=== PATIENT | male | born 1960 | race African-American/Black ===

== ENCOUNTER 2019-06-03 21:41 | Emergency (ER) | payer MEDICARE, MEDICAID ==
--- NOTE | 2019-06-03 22:18 | ER Document Report ---
ED Medical Screen (RME) - General Chief Complaint: Flu Symptoms Stated Complaint: FLU LIKE SYMPTOMS Time Seen by Provider: 06/03/19 22:12 Notes: Patient is a 59-year-old male who presents emergency department with a chief complaint of flulike symptoms. He has had a runny nose, cough, and chills for the past 3 days. Exam: Diminished breath sounds on the right lower lobe. No wheezing noted. I have greeted and performed a rapid initial assessment of this patient. A comprehensive ED assessment and evaluation of the patient, analysis of test results and completion of medical decision making process will be conducted by an additional ED providers. Physical Exam - Vital signs Vitals: Temp Pulse Resp BP Pulse Ox 99.3 F 79 18 162/81 H 96 06/03/19 21:59 06/03/19 21:59 06/03/19 21:59 06/03/19 21:59 06/03/19 21:59 Course - Vital Signs Vital signs: Temp Pulse Resp BP Pulse Ox 99.3 F 79 18 162/81 H 96 06/03/19 21:59 06/03/19 21:59 06/03/19 21:59 06/03/19 21:59 06/03/19 21:59
--- NOTE | 2019-06-03 23:29 | RADIOLOGY REPORT (SQ) ---
EXAM DESCRIPTION: XR CHEST 2 VIEWS COMPLETED DATE/TME: 06/03/2019 22:16 CLINICAL HISTORY: 59 years, Male, cough COMPARISON: None. NUMBER OF VIEWS: Two TECHNIQUE: Frontal and lateral radiographs of the chest were acquired LIMITATIONS: None. FINDINGS: Status post median sternotomy. Right subclavian approach cardiac pacer is in position. Cardiac and mediastinal contours are normal. Lungs are clear. No pleural effusion or pneumothorax. IMPRESSION: No acute disease. copyright 2010 [employer]- All Rights Reserved
[2019-06-04 00:41] LABS: A TYPE INFLUENZA AG NEGATIVE (NEGATIVE); B INFLUENZA AG NEGATIVE (NEGATIVE)
[2019-06-04 01:01] VITALS: BP 133/87
[2019-06-04] MEDS ORDERED: IPRATROPIUM/ALBUTEROL 0.5-2.5 MG/3 ML AMPUL NEB ONE (01:43)
--- NOTE | 2019-06-04 01:52 | ER Document Report ---
HPI - HPI Time Seen by Provider: 06/03/19 22:12 Pain Level: 3 Notes: 59-year-old male patient with past medical history of hypertension presenting with cough, congestion and body aches over the last 3 days. Patient reports he is tried [id number] medications without relief. Patient denies any fevers, nausea vomiting or diarrhea. - CONSTITUTIONAL Constitutional: DENIES: Fever, Chills - NEURO Neurology: REPORTS: Headache - CARDIOVASCULAR Cardiovascular: REPORTS: Chest pain - RESPIRATORY Respiratory: REPORTS: Coughing Past Medical History - General Information source: Patient - Social History Smoking Status: Former Smoker Frequency of alcohol use: None Drug Abuse: None Lives with: Spouse/Significant other Family History: None Patient has suicidal ideation: No Patient has homicidal ideation: No - Past Medical History Cardiac Medical History: Reports: Hx Hypercholesterolemia, Hx Hypertension Endocrine Medical History: Reports: Hx Diabetes Mellitus Type 2 Past Surgical History: Reports: Hx Cardiac Catheterization Vertical Provider Document - CONSTITUTIONAL Notes: PHYSICAL EXAMINATION: GENERAL: Well-appearing, well-nourished and in no acute distress. HEAD: Atraumatic, normocephalic. EYES: Pupils equal round and reactive to light, extraocular movements intact, sclera anicteric, conjunctiva are normal. ENT: Nares patent, oropharynx clear without exudates. Moist mucous membranes. NECK: Normal range of motion, supple without lymphadenopathy LUNGS: Breath sounds clear to auscultation bilaterally and equal. No wheezes rales or rhonchi. Bronchospasm with deep breath, congested cough. HEART: Regular rate and rhythm without murmurs ABDOMEN: Soft, nontender, nondistended abdomen. No guarding, no rebound. No masses appreciated. Musculoskeletal: Normal range of motion, no pitting or edema. No cyanosis. NEUROLOGICAL: Cranial nerves grossly intact. Normal speech, normal gait. Normal sensory, motor exams PSYCH: Normal mood, normal affect. SKIN: Warm, Dry, normal turgor, no rashes or lesions noted. - INFECTION CONTROL TRAVEL OUTSIDE OF THE [place] IN LAST 30 DAYS: No Course - Re-evaluation Re-evalutation: Chest X-Ray 06/03/19 22:16 IMPRESSION: No acute disease. copyright 2011 [employer]- All Rights Reserved Laboratory 06/04/19 00:15 Influenza A (Rapid) NEGATIVE Influenza B (Rapid) NEGATIVE Influenza testing negative. Chest x-ray unremarkable. Likely viral upper respiratory illness. Patient will be given prescriptions for his symptoms. Follow-up with primary care. Patient and verbalized understanding and agreement with this plan. - Vital Signs Vital signs: Temp Pulse Resp BP Pulse Ox 99 F 83 20 133/87 H 100 06/04/19 01:00 06/04/19 01:00 06/04/19 01:00 06/04/19 01:00 06/04/19 01:00 Discharge - Discharge Clinical Impression: Viral upper respiratory illness Condition: Stable Disposition: HOME, SELF-CARE Instructions: Upper Respiratory Illness ([facility]), Viral Syndrome ([facility]) Additional Instructions: Your chest x-ray and influenza testing were unremarkable today. Please push fluids. Take Tylenol and ibuprofen for pain, fever or body aches. Take medications as prescribed to help with your symptoms. This is likely viral and may take 7 to 10 days to pass. Please return to the emergency department if you start experiencing high fevers, vomiting or worsening shortness of breath. Follow-up with your primary care in the next 3 to 5 days for recheck. Prescriptions: Codeine Phosphate/Guaifenesin [Cheratussin AC Syrup] 10 ml PO QHS #120 ml Benzonatate [Tessalon Perles 100 mg Capsule] 1 - 2 tab PO Q8HP PRN #30 capsule PRN Reason: Prednisone [Deltasone 20 mg Tablet] 3 tab PO DAILY 5 Days #15 tablet Fluticasone Propionate [Flonase Nasal [place] 50 Mcg/[place] 16 gm] 1 spray NASL Q12 #1 inhaler Forms: Return to Work Referrals: MADDY KLEIN, AUTO FLEET MANAGER-C [Primary Care Provider] - Follow up as needed
== END 2019-06-04 02:27 | disposition home or self-care (01) ==
LOC: ER 21:41
DX: J06.9 Acute upper respiratory infection, unspecified (principal); B97.89 Other viral agents as the cause of diseases classified elsewhere; R05 Cough; R09.81 Nasal congestion; M79.10 Myalgia, unspecified site; R07.9 Chest pain, unspecified; I10 Essential (primary) hypertension; E11.9 Type 2 diabetes mellitus without complications
CPT/HCPCS: 94640; 99283; 87804; 71046; A9270; J7620

== ENCOUNTER 2019-06-11 13:06 | Emergency (ER) | payer MEDICARE, MEDICAID ==
[2019-06-11] MEDS ORDERED: NORMAL SALINE 1000 ML 1,000 ML IV ONE (13:12)
--- NOTE | 2019-06-11 13:16 | ER Document Report ---
ED Medical Screen (RME) - General Chief Complaint: Blood Pressure Problem Stated Complaint: ELEVATED BLOOD SUGAR Time Seen by Provider: 06/11/19 13:12 Primary Care Provider: MADDY KLEIN FNP-C [Primary Care Provider] - Follow up as needed Mode of Arrival: Wheelchair Information source: Patient Notes: 59-year-old male presented to ED for nausea weakness unsteady on his feet. He [facility] and said it was just read high because her meter only went to 400 so they instructed him to come to the emergency room right away. He is on insulin twice a day. He states he has been very weak very tired and urinating frequently he is a type II diabetic and uses insulin twice a day. He states he does have a pacemaker. He states he also has a history of a leaky heart valve. We will get him blood urine Accu- Chek fluids and get seen by another provider. I have greeted and performed a rapid initial assessment of this patient. A comprehensive ED assessment and evaluation of the patient, analysis of test results and completion of medical decision making process will be conducted by an additional ED providers. TRAVEL OUTSIDE OF THE [place] IN LAST 30 DAYS: No - Related Data Allergies/Adverse Reactions: No Known Allergies Allergy (Unverified 06/04/19 01:02) Past Medical History - Past Medical History Cardiac Medical History: Reports: Hx Hypercholesterolemia, Hx Hypertension Endocrine Medical History: Reports: Hx Diabetes Mellitus Type 2 Past Surgical History: Reports: Hx Cardiac Catheterization Doctor's Discharge - Discharge Referrals: MADDY KLEIN FNP-C [Primary Care Provider] - Follow up as needed
[2019-06-11 13:45] LABS: VENOUS BLOOD BASE EXCESS 0.5 mmol/L; VENOUS BLOOD HCO3 26.7 mmol/L (20-32); VENOUS BLOOD PCO2 47.6 mmHg (35-63); VENOUS BLOOD PH 7.37 (7.30-7.42)
[2019-06-11 13:47] LABS: ABSOLUTE EOSINOPHILS # (AUTO) 0.1 10^3/uL (0.0-0.6); ABSOLUTE LYMPHOCYTES (AUTO) 0.9 10^3/uL (0.5-4.7); ABSOLUTE MONOCYTES (AUTO) 0.6 10^3/uL (0.1-1.4); ABSOLUTE NEUT (AUTO) 6.5 10^3/uL (1.7-8.2); BASOPHILS % (AUTO) 0.4 % (0-2); HEMOGLOBIN 18.4 g/dL (13.5-17.0); LYMPHOCYTES % (AUTO) 11.2 % (13-45); MEAN CORPUSCULAR HEMOGLOBIN 27.5 pg (27.0-33.4); MEAN CORPUSCULAR HGB CONC 31.8 g/dL (32.0-36.0); MEAN CORPUSCULAR VOLUME 86 fl (80-97); MONOCYTES % (AUTO) 7.7 % (3-13); PLATELET COUNT 259 10^3/uL (150-450); RED BLOOD COUNT 6.68 10^6/uL (4.35-5.55); RED CELL DISTRIBUTION WIDTH 13.2 % (11.5-14.0); SEGMENTED NEUTROPHILS % (AUTO) 79.7 % (42-78); TOTAL CELLS COUNTED % (AUTO) 100 %; WHITE BLOOD COUNT 8.1 10^3/uL (4.0-10.5)
[2019-06-11 13:49] LABS: HEMATOCRIT 57.7 % (37.9-51.0)
[2019-06-11 14:22] LABS: ALBUMIN 4.7 g/dL (3.5-5.0); ALKALINE PHOSPHATASE 190 U/L (38-126); ANION GAP 18 (5-19); ASPARTATE AMINO TRANSFERASE 14 U/L (17-59); BILIRUBIN,DIRECT 0.3 mg/dL (0.0-0.4); BILIRUBIN,TOTAL 0.8 mg/dL (0.2-1.3); BLOOD UREA NITROGEN 33 mg/dL (7-20); CARBON DIOXIDE 23 mmol/L (22-30); CHLORIDE 88 mmol/L (98-107); CREATINE KINASE 55 U/L (55-170); POTASSIUM 5.6 mmol/L (3.6-5.0)
[2019-06-11 14:43] LABS: GLUCOSE 773 mg/dL (75-110)
[2019-06-11] MEDS ORDERED: RINGERS SOLUTION,LACTATED 1,000 ML IV ONE (15:33)
--- NOTE | 2019-06-11 15:57 | EKG REPORT ---
SEVERITY:- ABNORMAL ECG - SINUS RHYTHM LEFT ANTERIOR FASCICULAR BLOCK BORDERLINE T ABNORMALITIES, ANTERIOR LEADS : Confirmed by: Bola Coleman MD 11-Jun-2019 15:56:35
[2019-06-11 16:29] LABS: ALBUMIN 4.7 g/dL (3.5-5.0); BLOOD UREA NITROGEN 34 mg/dL (7-20); CALCIUM 11.2 mg/dL (8.4-10.2); PHOSPHORUS 5.4 mg/dL (2.5-4.5); POTASSIUM 5.6 mmol/L (3.6-5.0)
[2019-06-11 16:34] LABS: CARBON DIOXIDE 21 mmol/L (22-30); CHLORIDE 88 mmol/L (98-107)
[2019-06-11 16:36] LABS: ANION GAP 20 (5-19)
[2019-06-11 16:42] LABS: GLUCOSE 777 mg/dL (75-110)
[2019-06-11 16:43] LABS: APPEARANCE,URINE CLEAR; BILIRUBIN,URINE NEGATIVE (NEGATIVE); COLOR,URINE COLORLESS; GLUCOSE, URINE >=500 mg/dL (NEGATIVE); KETONES,URINE TRACE mg/dL (NEGATIVE); LEUKOCYTE ESTERASE,URINE NEGATIVE (NEGATIVE); NITRITE,URINE NEGATIVE (NEGATIVE); PROTEIN,URINE NEGATIVE (NEGATIVE); URINE SPECIFIC GRAVITY 1.026; UROBILINOGEN,URINE NEGATIVE mg/dL (<2.0)
--- NOTE | 2019-06-11 18:17 | RADIOLOGY REPORT (SQ) ---
EXAM DESCRIPTION: CHEST 2 VIEWS COMPLETED DATE/TIME: 06/11/2019 6:07 pm REASON FOR STUDY: cough COMPARISON: PA and lateral views of the chest from 06/03/2019. EXAM PARAMETERS: NUMBER OF VIEWS: two views TECHNIQUE: PA and lateral views of the chest were obtained. RADIATION DOSE: NA LIMITATIONS: none FINDINGS: LUNGS AND PLEURA: No consolidation, pleural effusion or pneumothorax. MEDIASTINUM AND HILAR STRUCTURES: No mediastinal or hilar contour abnormality. HEART AND VASCULAR STRUCTURES: The cardiac silhouette and pulmonary vasculature are within normal siu its. BONES: Median sternotomy wires and right subclavian approach transvenous pacemaker. HARDWARE: None in the chest. OTHER: No other finding. IMPRESSION: No acute cardiopulmonary process. TECHNICAL DOCUMENTATION: JOB ID: [id number] [employer]- All Rights Reserved Reading location - IP/workstation name: [email or web address]
[2019-06-11 18:54] LABS: ALBUMIN 3.6 g/dL (3.5-5.0); ALKALINE PHOSPHATASE 122 U/L (38-126); ANION GAP 12 (5-19); ASPARTATE AMINO TRANSFERASE 14 U/L (17-59); BILIRUBIN,DIRECT 0.2 mg/dL (0.0-0.4); BILIRUBIN,TOTAL 0.5 mg/dL (0.2-1.3); BLOOD UREA NITROGEN 29 mg/dL (7-20); CALCIUM 9.7 mg/dL (8.4-10.2); CARBON DIOXIDE 25 mmol/L (22-30); CHLORIDE 100 mmol/L (98-107); GLUCOSE 342 mg/dL (75-110); POTASSIUM 4.7 mmol/L (3.6-5.0); TOTAL PROTEIN 6.5 g/dL (6.3-8.2)
--- NOTE | 2019-06-11 19:45 | ER Document Report ---
ED General - General Chief Complaint: High Blood Sugar Stated Complaint: ELEVATED BLOOD SUGAR Time Seen by Provider: 06/11/19 13:12 Primary Care Provider: MADDY KLEIN FNP-C [Primary Care Provider] - Follow up as needed Mode of Arrival: Wheelchair Information source: Patient, [facility] Records TRAVEL OUTSIDE OF THE [place] IN LAST 30 DAYS: No - HPI Notes: 59-Y/O BM W/Hx DM, on 70/30 R he has not ISS with an oral DM med both of which he has been on for some time now and has been well controlled has never or has not recently had any lapse in his medications and he takes his sugar twice a day is really only last few days he has noticed sugars in the 400s. He does say he has a in the family and has noted some sugars into the 200s in the week before this but otherwise he started to notice frequent urination along with t hese days when he has been in the 400s. Denies any hospitalization for his diabetes or history of DKA. Has not had low sugars. He was seen in our ED a few days ago, 06-07-19 for cough, was prescribed 3d prednisone, Robitussin and had 2v cxr which did not show any radha PNA. But today he says he has not had much change at all in his cough he has not had any fever chills sweats. He denies any new abdominal pain he has had some mild sore throat that has not really changed in the last few days. He denies any problems with urination besides the polyuria. He denies any other vision change, or thopnea, exertional symptoms. He denies any other sick contacts. He has not smoked since 1993 when they placed the first pacemaker he said for very slow heart. He since has had to have 3 exchanges with the last being in 2007 secondary to initial staph infection from source of broken finger and re quiring hardware placement with subsequent infection and then difficulty exchanging pacemakers after that. - Related Data Allergies/Adverse Reactions: No Known Allergies Allergy (Unverified 06/04/19 01:02) Home Medications: insulin Past Medical History - General Information source: Patient - Social History Smoking Status: Former Smoker Frequency of alcohol use: None Drug Abuse: None Family History: None Patient has suicidal ideation: No Patient has homicidal ideation: No - Past Medical History Cardiac Medical History: Reports: Hx Hypercholesterolemia, Hx Hypertension Endocrine Medical History: Reports: Hx Diabetes Mellitus Type 2 Past Surgical History: Reports: Hx Cardiac Catheterization Review of Systems - Review of Systems Constitutional: No symptoms reported, See HPI EENT: See HPI, Throat pain. denies: Eye discharge, Nose discharge, Difficulty swallowing, Dental problem Cardiovascular: No symptoms reported. denies: Chest pain, Palpitations, Heart racing, Orthopnea, Dyspnea, Syncope, Dizziness, Lightheaded, Edema Respiratory: No symptoms reported, Cough, Sputum. denies: Hurts to breathe, Hemoptysis, Short of breath, Wheezing Gastrointestinal: No symptoms reported Genitourinary: No symptoms reported, See HPI. denies: Burning, Dysuria, Discharge, Flank pain, Hematuria, Incontinence, Urgency, Retention Male Genitourinary: No symptoms reported Musculoskeletal: No symptoms reported Skin: No symptoms reported Hematologic/Lymphatic: No symptoms reported Neurological/Psychological: No symptoms reported Physical Exam - Vital signs Vitals: Temp Pulse BP Pulse Ox 97.4 F 83 105/70 96 06/11/19 13:14 06/11/19 13:14 06/11/19 13:14 06/11/19 13:14 Interpretation: Normal - Notes Notes: Appears well, is no acute distress. On room air resting easily awakened by voice. Lungs are nonfocal. No absence of any breath sounds. Or diminished breath sounds. Has wet cough without sputum production while interviewing. - General General appearance: Appears well, Alert - HEENT Head: Normocephalic, Atraumatic Eyes: Normal Pupils: PERRL - Respiratory Respiratory status: No respiratory distress Chest status: Nontender Breath sounds: Normal Chest palpation: Normal - Cardiovascular Rhythm: Regular Heart sounds: Normal auscultation Murmur: No - Abdominal Inspection: Normal Distension: No distension Bowel sounds: Normal Tenderness: Nontender Organomegaly: No organomegaly - Back Back: Normal, Nontender - Extremities General upper extremity: Normal inspection, Nontender, Normal color, Normal ROM, Normal temperature General lower extremity: Normal inspection, Nontender, Normal color, Normal ROM, Normal temperature, Normal weight bearing. No: Renetta's sign - Neurological Neuro grossly intact: Yes Cognition: Normal Orientation: AAOx4 Traci Coma Scale Eye Opening: Spontaneous [place] Coma Scale Verbal: Oriented [place] Coma Scale Motor: Obeys Commands [place] Coma Scale Total: 15 Speech: Normal Motor strength normal: LUE, RUE, LLE, RLE Sensory: Normal - Psychological Associated symptoms: Normal affect, Normal mood - Skin Skin Temperature: Warm Skin Moisture: Dry Skin Color: Normal Course - Re-evaluation Re-evalutation: 06/11/19 21:45 Given 3L LR no evidence of acidosis or ketosis on initial venous and serum metabolic panel, after fluid administration repeat of metabolic panel showed normalization of bicarb no anion gap. Continued to be hemodynamically within normal limits and stable. I explained this is secondary to the 3 days of prednisone and now that he has stopped the offending agent I expect him to not have continued polyuria and that his sugar should be starting to normalize again in the next day or so. I said please watch for any signs of fever chills sweats that develop or trouble breathing its new or return of the polyuria polydipsia or any abdominal pain or other concerns. We also had repeated the two-view chest x-ray here and again no evidence of pneumonia. Had no fevers while in the ED. - Vital Signs Vital signs: Temp Pulse Resp BP Pulse Ox 97.6 F 61 15 132/81 H 61 L 06/11/19 20:18 06/11/19 20:18 06/11/19 20:18 06/11/19 20:18 06/11/19 20:18 - Laboratory Result Diagrams: 06/11/19 13:27 06/11/19 17:58 Laboratory results interpreted by me: 06/11/19 06/11/19 06/11/19 13:27 13:27 13:27 RBC 6.68 H Hgb 18.4 H Hct 57.7 H MCHC 31.8 L Lymph % (Auto) 11.2 L Seg Neutrophils % 79.7 H Sodium 129.3 L 128.5 L Potassium 5.6 H 5.6 H Chloride 88 L 88 L Carbon Dioxide 21 L Anion Gap 20 H BUN 33 H 34 H Creatinine 1.29 H 1.29 H Est GFR (MDRD) Non-Af 57 L 57 L Glucose 773 H* 777 H* POC Glucose Calcium 11.0 H 11.2 H Phosphorus 5.4 H AST 14 L Alkaline Phosphatase 190 H Urine Glucose (UA) Urine Ketones 06/11/19 06/11/19 06/11/19 15:15 16:20 16:41 RBC Hgb Hct MCHC Lymph % (Auto) Seg Neutrophils % Sodium Potassium Chloride Carbon Dioxide Anion Gap BUN Creatinine Est GFR (MDRD) Non-Af Glucose POC Glucose 450 H* 419 H* Calcium Phosphorus AST Alkaline Phosphatase Urine Glucose (UA) >=500 H Urine Ketones TRACE H 06/11/19 17:58 RBC Hgb Hct MCHC Lymph % (Auto) Seg Neutrophils % Sodium 136.9 L Potassium Chloride Carbon Dioxide Anion Gap BUN 29 H Creatinine Est GFR (MDRD) Non-Af Glucose 342 H POC Glucose Calcium Phosphorus AST 14 L Alkaline Phosphatase Urine Glucose (UA) Urine Ketones - Diagnostic Test Radiology reviewed: Image reviewed, Reports reviewed Discharge - Discharge Clinical Impression: Hyperglycemia without ketosis, Hyperglycemia, drug-induced, Viral upper respiratory illness Condition: Fair Disposition: HOME, SELF-CARE Additional Instructions: Today your chest x-ray does not show any pneumonia and looks unchanged from a few days ago. Your blood sugar has come down with just fluids and you have no evidence of DKA or in other words any acids in your blood. Your other labs look okay, I think you should still have a viral infection and bronchitis and the sugars are elevated just because of the prednisone which is a steroid which does this to blood sugars. Therefore since you are not taking this anymore these should start to improve just continue to check your sugars at home and make sure you stay hydrated and are eating well. Otherwise at like you to call your doctor for follow-up just for regular maintenance. Watch though, for any fevers greater than 100.4, worsening or trouble breathing please come to seek medical attention and let your doctor know. Or you feel like your sugars are getting high again and you can talk to your doctor, you can always come to the ED if needed. Referrals: MADDY KLEIN, UNIT DIRECTOR-C [Primary Care Provider] - Follow up as needed
[2019-06-11 20:18] VITALS: BP 132/81
== END 2019-06-11 20:18 | disposition home or self-care (01) ==
LOC: ER 13:06
DX: E11.65 Type 2 diabetes mellitus with hyperglycemia (principal); J06.9 Acute upper respiratory infection, unspecified; R05 Cough; J02.9 Acute pharyngitis, unspecified; Z95.0 Presence of cardiac pacemaker; Z87.891 Personal history of nicotine dependence; I10 Essential (primary) hypertension
CPT/HCPCS: 93005; 99284; 96360; 96361; 80069; 36415; 87070 ×2; 82553; 87880; 82962; 82550; 85025; 80053; 81001; 82803; 71046; 93010; J7030; J7120

== ENCOUNTER 2019-12-25 14:10 | Emergency (ER) | payer MEDICARE, MEDICAID ==
[2019-12-25] MEDS ORDERED: DIPH/PERTUSS(ACELL)/TETANUS VAC/PF 0.5 ML SYR (>=10YO) IM ONE (14:26)
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
--- NOTE | 2019-12-25 16:02 | RADIOLOGY REPORT (SQ) ---
EXAM DESCRIPTION: HAND RIGHT 3 VIEWS IMAGES COMPLETED DATE/TIME: 12/25/2019 3:08 pm REASON FOR STUDY: pain COMPARISON: None. EXAM PARAMETERS: NUMBER OF VIEWS: Three views. TECHNIQUE: AP, lateral and oblique radiographic images acquired of the right hand. LIMITATIONS: None. FINDINGS: MINERALIZATION: Normal. BONES: No acute fracture dislocation. The 3rd digit distal interphalangeal joint is fused. Degenera tive changes are seen of the thumb metacarpal phalangeal joint and all interphalangeal joints. JOINTS: No effusions. SOFT TISSUES: There may be foci of subcutaneous gas involving the 4th and 5th digits. No retained ra diopaque foreign body is demonstrated. OTHER: No other significant finding. IMPRESSION: No evidence of acute osseous injury. There may be foci of subcutaneous gas involving th e 4th and 5th digits. . TECHNICAL DOCUMENTATION: JOB ID: [id number] 2010 [employer]- All Rights Reserved Reading location - IP/workstation name: [email or web address]
[2019-12-25] MEDS ORDERED: LIDOCAINE 1% INJ (10 MG/ML) 10 ML MDV INJ ONE ×2 (17:11→17:47)
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
[2019-12-25 18:26] VITALS: BP 116/75
== END 2019-12-25 18:23 | disposition home or self-care (01) ==
LOC: ER 14:10
PROC: 0HQFXZZ Repair Right Hand Skin, External Approach (ICD-10-PCS; principal; 2019-12-25)
DX: S61.411A Laceration without foreign body of right hand, initial encounter (principal); W22.8XXA Striking against or struck by other objects, initial encounter; I10 Essential (primary) hypertension; E11.9 Type 2 diabetes mellitus without complications
CPT/HCPCS: 90471; 90715; 99282

== ENCOUNTER 2020-05-18 10:21 | Emergency (ER) | payer OTHER, MEDICARE, MEDICAID ==
--- NOTE | 2020-05-18 11:23 | ER Document Report ---
ED Medical Screen (RME) - General Chief Complaint: High Blood Sugar Stated Complaint: POSSIBLE HIGH BLOOD SUGAR Time Seen by Provider: 05/18/20 11:17 Mode of Arrival: Ambulatory Information source: Patient Notes: 60-year-old male presented to ED for elevated blood sugar. He states it was 569 at home. His Accu-Chek is high in the triage area. We have ordered blood work IV fluids venous blood gas monitoring and EKG. We will get him to a room as soon as possible. We will start IV fluids in the triage area until he gets a room. Patient states he does have a follow-up appointment tomorrow with the OR. States he is not having nausea and vomiting as yet. I have greeted and performed a rapid initial assessment of this patient. A comprehensive ED assessment and evaluation of the patient, analysis of test results and completion of medical decision making process will be conducted by an additional ED providers. TRAVEL OUTSIDE OF THE [place] IN LAST 30 DAYS: No - Related Data Allergies/Adverse Reactions: No Known Allergies Allergy (Verified 12/25/19 14:20) Past Medical History - Past Medical History Cardiac Medical History: Reports: Hx Hypercholesterolemia, Hx Hypertension Endocrine Medical History: Reports: Hx Diabetes Mellitus Type 2 Past Surgical History: Reports: Hx Cardiac Catheterization Physical Exam - Vital signs Vitals: Temp Pulse Resp BP Pulse Ox 98.1 F 74 18 141/85 H 99 05/18/20 10:45 05/18/20 10:45 05/18/20 10:45 05/18/20 10:45 05/18/20 10:45 Course - Vital Signs Vital signs: Temp Pulse Resp BP Pulse Ox 98.1 F 74 18 141/85 H 99 05/18/20 10:45 05/18/20 10:45 05/18/20 10:45 05/18/20 10:45 05/18/20 10:45
[2020-05-18] MEDS: NORMAL SALINE 1000 ML 1,000 ML IV PRN ×2 (11:32→11:37)
[2020-05-18 11:48] LABS: VENOUS BLOOD BASE EXCESS -4.8 mmol/L; VENOUS BLOOD HCO3 21.3 mmol/L (20-32); VENOUS BLOOD PCO2 42.9 mmHg (35-63); VENOUS BLOOD PH 7.31 (7.30-7.42)
[2020-05-18 11:53] LABS: ABSOLUTE EOSINOPHILS # (AUTO) 0.1 10^3/uL (0.0-0.6); ABSOLUTE LYMPHOCYTES (AUTO) 0.8 10^3/uL (0.5-4.7); ABSOLUTE MONOCYTES (AUTO) 0.3 10^3/uL (0.1-1.4); ABSOLUTE NEUT (AUTO) 2.8 10^3/uL (1.7-8.2); BASOPHILS % (AUTO) 0.6 % (0-2); EOSINOPHILS % (AUTO) 2.1 % (0-6); HEMATOCRIT 52.4 % (37.9-51.0); HEMOGLOBIN 17.1 g/dL (13.5-17.0); LYMPHOCYTES % (AUTO) 18.9 % (13-45); MEAN CORPUSCULAR HEMOGLOBIN 28.6 pg (27.0-33.4); MEAN CORPUSCULAR HGB CONC 32.6 g/dL (32.0-36.0); MEAN CORPUSCULAR VOLUME 88 fl (80-97); MONOCYTES % (AUTO) 8.2 % (3-13); PLATELET COUNT 191 10^3/uL (150-450); RED BLOOD COUNT 5.98 10^6/uL (4.35-5.55); SEGMENTED NEUTROPHILS % (AUTO) 70.2 % (42-78); TOTAL CELLS COUNTED % (AUTO) 100 %
[2020-05-18 12:07] LABS: ALBUMIN 4.6 g/dL (3.5-5.0); ALKALINE PHOSPHATASE 116 U/L (38-126); ANION GAP 13 (5-19); ASPARTATE AMINO TRANSFERASE 23 U/L (17-59); BILIRUBIN,DIRECT 0.2 mg/dL (0.0-0.4); BILIRUBIN,TOTAL 0.7 mg/dL (0.2-1.3); BLOOD UREA NITROGEN 18 mg/dL (7-20); CALCIUM 10.3 mg/dL (8.4-10.2); CARBON DIOXIDE 26 mmol/L (22-30); CHLORIDE 89 mmol/L (98-107); CREATINE KINASE 186 U/L (55-170); POTASSIUM 5.2 mmol/L (3.6-5.0); TOTAL PROTEIN 7.5 g/dL (6.3-8.2)
[2020-05-18 12:21] LABS: GLUCOSE 736 mg/dL (75-110)
[2020-05-18] MEDS ORDERED: NORMAL SALINE 1000 ML 1,000 ML IV ONE ×3 (13:04→15:24)
[2020-05-18] MEDS ORDERED: INSULIN REG, HUMAN 100 UNIT/ML 3 ML VIAL (PYX) IV ONE (13:04)
--- NOTE | 2020-05-18 13:35 | RADIOLOGY REPORT (SQ) ---
EXAM DESCRIPTION: CHEST SINGLE VIEW IMAGES COMPLETED DATE/TIME: 05/18/2020 1:26 pm REASON FOR STUDY: hyperglycemia COMPARISON: 06/11/2019 EXAM PARAMETERS: NUMBER OF VIEWS: One view. TECHNIQUE: Single frontal radiographic view of the chest acquired. RADIATION DOSE: NA LIMITATIONS: None. FINDINGS: LUNGS AND PLEURA: No opacities, masses or pneumothorax. No pleural effusion. MEDIASTINUM AND HILAR STRUCTURES: No masses. Contour normal. HEART AND VASCULAR STRUCTURES: Heart normal in size. Normal vasculature. BONES: No acute findings. HARDWARE: Prior anterior median sternotomy and cardiac pacemaker. OTHER: No other significant finding. IMPRESSION: 1. No significant interval changes since the prior study dated 06/11/2019. No acute fi ndings. TECHNICAL DOCUMENTATION: JOB ID: [id number] 2010 [employer]- All Rights Reserved Reading location - IP/workstation name: [email or web address]
[2020-05-18 14:45] LABS: APPEARANCE,URINE CLEAR; BILIRUBIN,URINE NEGATIVE (NEGATIVE); COLOR,URINE COLORLESS; GLUCOSE, URINE >=500 mg/dL (NEGATIVE); KETONES,URINE NEGATIVE (NEGATIVE); LEUKOCYTE ESTERASE,URINE NEGATIVE (NEGATIVE); NITRITE,URINE NEGATIVE (NEGATIVE); PROTEIN,URINE NEGATIVE (NEGATIVE); URINE SPECIFIC GRAVITY 1.025; UROBILINOGEN,URINE NEGATIVE mg/dL (<2.0)
[2020-05-18 15:07] LABS: URINE AMPHETAMINES SCREEN NEGATIVE; URINE BARBITURATES SCREEN NEGATIVE; URINE BENZODIAZEPINES SCREEN NEGATIVE; URINE COCAINE SCREEN NEGATIVE; URINE MARIJUANA (THC) SCREEN NEGATIVE; URINE METHADONE SCREEN NEGATIVE; URINE PHENCYCLIDINE SCREEN NEGATIVE
[2020-05-18 15:33] VITALS: BP 148/84
--- NOTE | 2020-05-18 15:50 | EKG REPORT ---
SEVERITY:- ABNORMAL ECG - SINUS RHYTHM LEFT ANTERIOR FASCICULAR BLOCK ABNORMAL T, CONSIDER ISCHEMIA, INFERIOR LEADS : Confirmed by: Brenda Abdul MD 18-May-2020 15:49:30
--- NOTE | 2020-05-18 16:23 | ER Document Report ---
Entered by IVÁN BARNARD SCRIBE 05/18/20 1227 Acting as scribe for:SCOTT EISENBERG MD ED General - General Chief Complaint: High Blood Sugar Stated Complaint: POSSIBLE HIGH BLOOD SUGAR Time Seen by Provider: 05/18/20 11:17 Primary Care Provider: GRUPO,SONI [Primary Care Provider] - Follow up as needed Mode of Arrival: Ambulatory Information source: Patient Notes: This 60 year old male patient presents to the emergency department today with high blood sugar. Patient states it was 567 this morning when he checked at home, and reports frequent urination last night. Patient reports history of HTN, HLD, DM type 2, and states he has been off his medications for a few weeks since visiting family in [place]. Patient states he has not been following his regular diet, and would take insulin when needed but he ran out. Denies diarrhea or abd ominal pain. TRAVEL OUTSIDE OF THE [place] IN LAST 30 DAYS: No - Related Data Allergies/Adverse Reactions: No Known Allergies Allergy (Verified 12/25/19 14:20) Past Medical History - General Information source: Patient - Social History Smoking Status: Never Smoker Cigarette use (# per day): No Family History: None - Past Medical History Cardiac Medical History: Reports: Hx Hypercholesterolemia, Hx Hypertension Endocrine Medical History: Reports: Hx Diabetes Mellitus Type 2 Past Surgical History: Reports: Hx Cardiac Catheterization, Hx Open Heart Surgery, Hx Pacemaker Review of Systems - Review of Systems Constitutional: No symptoms reported EENT: No symptoms reported Cardiovascular: No symptoms reported Respiratory: No symptoms reported Gastrointestinal: See HPI. denies: Abdominal pain, Diarrhea Genitourinary: See HPI, Frequency Male Genitourinary: No symptoms reported Musculoskeletal: No symptoms reported Skin: No symptoms reported Hematologic/Lymphatic: See HPI Neurological/Psychological: No symptoms reported -: Yes All other systems reviewed and negative Physical Exam - Vital signs Vitals: Temp Pulse Resp BP Pulse Ox 98.1 F 74 18 141/85 H 99 05/18/20 10:45 05/18/20 10:45 05/18/20 10:45 05/18/20 10:45 05/18/20 10:45 - General General appearance: Appears well, Alert - HEENT Head: Normocephalic, Atraumatic Eyes: Normal Pupils: PERRL - Respiratory Respiratory status: No respiratory distress Chest status: Nontender Breath sounds: Normal Chest palpation: Normal - Cardiovascular Rhythm: Regular Heart sounds: Normal auscultation Murmur: No - Abdominal Inspection: Normal Distension: No distension Bowel sounds: Normal Tenderness: Nontender - Extremities General upper extremity: Normal inspection, Normal ROM General lower extremity: Normal inspection, Normal ROM. No: Edema - Neurological Neuro grossly intact: Yes Cognition: Normal Orientation: AAOx4 [place] Coma Scale Eye Opening: Spontaneous [place]aci Coma Scale Verbal: Oriented [place] Coma Scale Motor: Obeys Commands [place] Coma Scale Total: 15 Speech: Normal Motor strength normal: LUE, RUE, LLE, RLE Sensory: Normal - Psychological Associated symptoms: Normal affect, Normal mood - Skin Skin Temperature: Warm Skin Moisture: Dry Skin Color: Normal Course - Re-evaluation Re-evalutation: 05/18/20 15:44 Patient reports that he has been noncompliant on medications including his insulin pills for high blood pressure etc. Patient is resting comfortably now after IV fluids x3 L and IV Humulin R insulin. - Vital Signs Vital signs: Temp Pulse Resp BP Pulse Ox 98.1 F 74 17 148/84 H 97 05/18/20 10:45 05/18/20 10:45 05/18/20 15:01 05/18/20 15:00 05/18/20 15:01 05/18/20 15:44 Vital signs stable - Laboratory Result Diagrams: 05/18/20 11:30 05/18/20 11:30 Laboratory results interpreted by me: 05/18/20 05/18/20 05/18/20 11:30 11:30 13:55 RBC 5.98 H Hgb 17.1 H Hct 52.4 H Sodium 127.7 L Potassium 5.2 H Chloride 89 L Glucose 736 H* POC Glucose Calcium 10.3 H Creatine Kinase 186 H Urine Glucose (UA) >=500 H 05/18/20 15:29 RBC Hgb Hct Sodium Potassium Chloride Glucose POC Glucose 323 H Calcium Creatine Kinase Urine Glucose (UA) 05/18/20 15:45 Laboratories show a glucose of 736 with a reciprocal changes noted and sodium of 127 potassium 5.2 calcium 10.3 patient's repeat blood sugar is down to 3 3:23 liters of IV fluids and 10 units IV Humulin R. - Diagnostic Test Radiology reviewed: Image reviewed, Reports reviewed Radiology results interpreted by me: 05/18/20 15:45 Chest X-Ray 05/18/20 13:06 IMPRESSION: 1. No significant interval changes since the prior study dated 06/11/2019. No acute findings. Chest x-ray shows no significant interval change from 06/11/2019 no acute findings. - EKG Interpretation by Me Additional EKG results interpreted by me: 05/18/20 15:46 Twelve-lead EKG shows a normal sinus rhythm rate of 64 with a left anterior fascicular block noted. Patient has T wave changes inferiorly aVL and aVF. Nonspecific ST-T wave changes otherwise. Patient has normal NC interval normal QRS interval and normal QT interval. Patient has a left axis deviation. No evidence for an acute STEMI. Discharge - Discharge Clinical Impression: Type 2 diabetes mellitus with hyperosmolar nonketotic hyperglycemia Condition: Good Disposition: HOME, SELF-CARE Additional Instructions: Diabetes You have an abnormally high blood sugar, suspicious for diabetes. Not all high blood sugar requires long-term treatment. High blood sugar can be due to medications, , or the stress of illness. (These cases are "borderline diabetes.") If the doctor feels your high blood sugar might get better with time, you may not require treatment now. You will be scheduled for further evaluation. It's very important that you follow through. Uncontrolled high blood sugar leads to early heart disease, strokes, nerve damage, eye damage, and kidney damage. All diabetics should follow a diet designed to control the blood sugar. Overweight diabetics should exercise regularly and lose weight. If this is not sufficient to control the blood sugar, pills or insulin shots are necessary. Younger people who develop diabetes almost always require insulin daily. Home testing of blood sugars or urine sugar is required. Diabetic teaching is available to help you figure insulin doses and monitor the blood sugar. Call the physician if there is faintness, excess sleepiness, or very rapid breathing. If hypoglycemia (LOW blood sugar) develops, symptoms are shakiness, weakness, sweating, and confusion. In this case, you should eat or drink something with sugar at once. Prescriptions: Empagliflozin [Jardiance] 10 mg PO DAILY #30 tablet Lisinopril/Hydrochlorothiazide [Lisinopril-Hctz 20-12.5 mg Tab] 1 each PO DAILY #30 tablet Gabapentin [Neurontin 300 mg Capsule] 300 mg PO Q8 #90 cap Insulin NPH Hum/Reg Insulin Hm [Relion Novolin 70-30 Flexpen] 25 unit SQ QAM #100 insuln.pen Sertraline HCl [Zoloft 50 mg Tablet] 100 mg PO DAILY #60 tablet Forms: Elevated Blood Pressure Referrals: [facility] [Primary Care Provider] - Follow up as needed I personally performed the services described in the documentation, reviewed and edited the documentation which was dictated to the scribe in my presence, and it accurately records my words and actions.
== END 2020-05-18 17:51 | disposition home or self-care (01) ==
LOC: ER 10:21
DX: E11.65 Type 2 diabetes mellitus with hyperglycemia (principal); T38.3X6A Underdosing of insulin and oral hypoglycemic [antidiabetic] drugs, initial encounter; Z91.128 Patient's intentional underdosing of medication regimen for other reason; Z91.14 Patient's other noncompliance with medication regimen; Z91.11 Patient's noncompliance with dietary regimen; I10 Essential (primary) hypertension; I44.4 Left anterior fascicular block; Z95.0 Presence of cardiac pacemaker
CPT/HCPCS: 93005; 99285; 96361; 96374; 36415; 82962; 82550; 85025; 80053; 81001; 80307; 82803; 71045; 93010; J1815; J7030